=== PATIENT | male | born 1940 | race Caucasian/White ===

== ENCOUNTER 2019-02-17 13:20 | Emergency (ER) | payer MEDICARE, BC ==
[~2019-02-17] VITALS: Ht 170.2 cm; Wt 70.5 kg
[~2019-02-17 13:20] MED LIST: ASPIR-LOW81 MG PO; ASPIRIN E.C. 8181 MG PO; EFFIENT10 MG PO; LIPITOR 40MG TA40 MG PO; LOPRESSOR 550 MG/TAB PO; MEVACOR; MEVACOR40 MG PO; MULTIPLE VITAMI1 TAB PO; MVI; NEXIUM PO; TYLENOL 500MG500 MG PO; VASOTEC 2.2.5 MG/TAB PO
[2019-02-17 13:21] VITALS: TEMP 97.1
[2019-02-17 14:58] VITALS: BP 127/69
[2019-02-17 16:55] VITALS: PULSE 63
== END 2019-02-17 17:00 | disposition home or self-care (01) ==
LOC: COL.ER 13:20
DX: S01.01XA Laceration without foreign body of scalp, initial encounter (principal); S42.251A Displaced fracture of greater tuberosity of right humerus, initial encounter for closed fracture; I10 Essential (primary) hypertension; I25.10 Atherosclerotic heart disease of native coronary artery without angina pectoris; W01.0XXA Fall on same level from slipping, tripping and stumbling without subsequent striking against object, initial encounter

== ENCOUNTER → 2020-05-25 | Outpatient (CLI) | payer MEDICARE, BC | LOC: COL.RAD 08:00 | DX: N18.3 Chronic kidney disease, stage 3 (moderate) (principal); N20.0 Calculus of kidney ==